=== PATIENT | male | born 1985 | race Caucasian/White ===

== ENCOUNTER 2016-11-29 16:13 | Inpatient (IN) | payer MEDICAID, MEDICARE ==
[~2016-11-29] VITALS: Ht 175.3 cm; Wt 81.5 kg
[~2016-11-29 16:13] MED LIST: BENZ2TAB10 PO; RISP3 PO
[2016-11-29] MEDS ORDERED: MAG HYDROX/AL HYDROX/SIMETH ES 30 ML SUSPENSION UDCUP PO PRN (17:30)
[2016-11-29] MEDS ORDERED: LOPERAMIDE HCL 2 MG CAPSULE PO PRN (17:30)
[2016-11-29] MEDS ORDERED: GuaiFENesin/D-METHORPHAN [SUGAR-FREE] 200-20MG/10 ML SYRUP UDCUP PO PRN (17:30)
[2016-11-29] MEDS ORDERED: TUBERCULIN, PURIFIED PROTEIN DERIVATIVE 5 TU/0.1 ML SYG ID ONE (17:30)
[2016-11-29] MEDS ORDERED: PROMETHAZINE HCL 25 MG TABLET PO PRN (17:30)
[2016-11-29] MEDS ORDERED: MAGNESIUM HYDROXIDE SUSPENSION 30 ML UDCUP PO PRN (17:30)
[2016-11-29] MEDS ORDERED: PNEUMOCOCCAL VACCINE POLYVALENT 0.5 ML VIAL [PPSV23] IM ONE (18:00)
[2016-11-29] MEDS ORDERED: INFLUENZA VIRUS VACCINE QVS 2016-17 (3YR+)/PF 60 MCG/0.5 ML SYRINGE IM ONE (18:00)
[2016-11-29 18:24] VITALS: BP 123/61
[2016-11-29] MEDS: GABAPENTIN 300 MG CAPSULE PO SCH (18:58)
[2016-11-29] MEDS: THIAMINE HCL 100 MG TABLET PO SCH (18:58)
[2016-11-29 19:31] LABS: GLUCOSE,POINT OF CARE 126 MG/DL (70-110)
[2016-11-29] MEDS: DIVALPROEX SODIUM 500 MG ER TABLET PO SCH (20:36)
[2016-11-29] MEDS: LORazepam 2 MG TABLET PO PRN (20:36)
[2016-11-29] MEDS: ZOLPIDEM TARTRATE 10 MG TABLET PO PRN (20:36)
[2016-11-29] MEDS ORDERED: OLANZapine 5 MG RAPDIS TABLET PO SCH (21:00)
[2016-11-30 02:49] VITALS: BP 128/66
[2016-11-30 08:12] VITALS: BP 114/64
[2016-11-30] MEDS ORDERED: NICOTINE 14 MG/24 HOUR PATCH TD SCH (09:00)
[2016-11-30] MEDS: THIAMINE HCL 100 MG TABLET PO SCH ×2 (09:23→16:52)
[2016-11-30] MEDS: NALTREXONE HCL 50 MG TABLET PO SCH (09:23)
[2016-11-30] MEDS: GABAPENTIN 300 MG CAPSULE PO SCH ×3 (09:23→16:52)
[2016-11-30] MEDS: NICOTINE 21 MG/24 HOUR PATCH TD SCH (09:23)
[2016-11-30] MEDS: MULTIVITAMINS WITH MINERALS, THERAPEUTIC TABLET PO SCH (09:24)
[2016-11-30] MEDS: LORazepam 2 MG TABLET PO PRN ×2 (09:24→16:52)
[2016-11-30] MEDS: FOLIC ACID 1 MG TABLET PO SCH (09:24)
[2016-11-30 09:33] LABS: APPEARANCE,URINE CLEAR (CLEAR); GLUCOSE, URINE (UA) NEGATIVE (NEGATIVE); KETONES,URINE NEGATIVE (NEGATIVE); LEUKOCYTE ESTERASE ,URINE NEGATIVE (NEGATIVE); OCCULT BLOOD,URINE TRACE (NEGATIVE); PROTEIN,URINE NEGATIVE (NEGATIVE)
[2016-11-30 10:11] LABS: ADD UA MICROSCOPIC YES
[2016-11-30 10:26] LABS: RBC,URINE 0-2 /HPF (0-2); WBC,URINE 0-2 /HPF (0-5)
[2016-11-30 10:27] LABS: SQUAMOUS EPITHELIAL CELL,UR Rare /LPF (None Seen)
[2016-11-30 16:15] VITALS: BP 119/73
[2016-11-30] MEDS: HydrOXYzine PAMOATE 50 MG CAPSULE PO PRN (16:52)
[2016-11-30] MEDS ORDERED: LORazepam 2 MG/ML VIAL IM ONE (18:15)
[2016-11-30] MEDS ORDERED: DiphenhydrAMINE HCL 50 MG/ML VIAL IM ONE (18:15)
[2016-11-30] MEDS ORDERED: HALOPERIDOL LACTATE 5 MG/ML VIAL IM ONE (18:15)
[2016-11-30] MEDS: DIVALPROEX SODIUM 500 MG ER TABLET PO SCH (21:00)
[2016-11-30] MEDS: OLANZapine 10 MG RAPDIS TABLET PO SCH (21:00)
[2016-12-01 07:04] VITALS: BP 111/68
[2016-12-01 08:12] VITALS: BP 135/75
[2016-12-01] MEDS: NICOTINE 21 MG/24 HOUR PATCH TD SCH (08:29)
[2016-12-01] MEDS: THIAMINE HCL 100 MG TABLET PO SCH ×2 (08:29→16:51)
[2016-12-01] MEDS: LORazepam 2 MG TABLET PO PRN ×2 (08:29→16:51)
[2016-12-01] MEDS: MULTIVITAMINS WITH MINERALS, THERAPEUTIC TABLET PO SCH (08:29)
[2016-12-01] MEDS: FOLIC ACID 1 MG TABLET PO SCH (08:29)
[2016-12-01] MEDS: NALTREXONE HCL 50 MG TABLET PO SCH (08:29)
[2016-12-01] MEDS: GABAPENTIN 300 MG CAPSULE PO SCH ×3 (08:29→16:52)
[2016-12-01] MEDS: OLANZapine 5 MG RAPDIS TABLET PO PRN (10:15)
[2016-12-01] MEDS ORDERED: DiphenhydrAMINE HCL 50 MG/ML VIAL ONE (10:55)
[2016-12-01] MEDS ORDERED: LORazepam 2 MG/ML VIAL ONE (10:55)
[2016-12-01] MEDS ORDERED: HALOPERIDOL LACTATE 5 MG/ML VIAL ONE (10:55)
[2016-12-01] MEDS ORDERED: DiphenhydrAMINE HCL 50 MG/ML VIAL IM ONE (11:00)
[2016-12-01] MEDS ORDERED: BENZTROPINE MESYLATE 2 MG TABLET PO ONE (11:00)
[2016-12-01] MEDS ORDERED: LORazepam 2 MG/ML VIAL IM ONE (11:00)
[2016-12-01] MEDS ORDERED: HALOPERIDOL LACTATE 5 MG/ML VIAL IM ONE (11:00)
[2016-12-01] MEDS: BENZTROPINE MESYLATE 2 MG TABLET PO SCH ×2 (13:00→16:52)
[2016-12-01 16:12] VITALS: BP 112/68
[2016-12-01] MEDS: HydrOXYzine PAMOATE 50 MG CAPSULE PO PRN (16:51)
[2016-12-01] MEDS: OLANZapine 10 MG RAPDIS TABLET PO SCH (20:56)
[2016-12-01] MEDS: DIVALPROEX SODIUM 500 MG ER TABLET PO SCH (20:56)
[2016-12-02 05:17] VITALS: BP 137/95
[2016-12-02] MEDS ORDERED: ALBUTEROL SULFATE HFA 90 MCG/PUFF 8 GM INHALER IH PRN (06:15)
[2016-12-02 08:06] LABS: BASOPHILS % (AUTO) 0.6 % (0.0-2.0); EOSINOPHILS % (AUTO) 5.3 % (1.0-6.0); HEMATOCRIT 44.8 % (41-53); HEMOGLOBIN 15.1 g/dL (13.5-17.5); LYMPHOCYTES % (AUTO) 35.5 % (22.0-44.0); MEAN CORPUSCULAR HEMOGLOBIN 30.6 pg (26.0-34.0); MEAN CORPUSCULAR HGB CONC 33.8 G/dL (31.0-37.0); MEAN CORPUSCULAR VOLUME 91 fL (80-100); MONOCYTES # (AUTO) 0.4 K/uL (0.1-1.0); MONOCYTES % (AUTO) 6.8 % (2.0-9.0); NEUTROPHILS % (AUTO) 51.8 % (40.0-70.0); PLATELET COUNT (AUTO) 363 K/uL (150-450); RED BLOOD CELL COUNT(AUTO) 4.94 MIL/uL (4.50-5.90); RED CELL DISTRIBUTION WIDTH 12.9 % (11.5-14.5); WHITE BLOOD COUNT (AUTO) 5.8 K/uL (4.5-11.0)
[2016-12-02] MEDS: THIAMINE HCL 100 MG TABLET PO SCH ×2 (08:19→17:41)
[2016-12-02] MEDS: OLANZapine 5 MG RAPDIS TABLET PO PRN ×2 (08:19→13:56)
[2016-12-02] MEDS: NALTREXONE HCL 50 MG TABLET PO SCH (08:19)
[2016-12-02] MEDS: BENZTROPINE MESYLATE 2 MG TABLET PO SCH ×3 (08:19→17:41)
[2016-12-02] MEDS: MULTIVITAMINS WITH MINERALS, THERAPEUTIC TABLET PO SCH (08:19)
[2016-12-02] MEDS: GABAPENTIN 300 MG CAPSULE PO SCH ×3 (08:19→17:41)
[2016-12-02] MEDS: FOLIC ACID 1 MG TABLET PO SCH (08:19)
[2016-12-02] MEDS: NICOTINE 21 MG/24 HOUR PATCH TD SCH (08:20)
[2016-12-02] MEDS: LORazepam 2 MG TABLET PO PRN ×3 (08:20→17:41)
[2016-12-02 08:22] VITALS: BP 136/69
[2016-12-02 08:30] LABS: HEMOGLOBIN A1C 5.3 % (4.5-6.2)
[2016-12-02 09:53] LABS: ALANINE AMINOTRANSFERASE 33 U/L (12-78); ALBUMIN 3.6 g/dL (3.4-5.0); ANION GAP 7 mmol/L (8-16); ASPARTATE AMINOTRANSFERASE 34 U/L (15-37); BILIRUBIN,TOTAL 0.2 mg/dL (0.1-1.0); CALCIUM, TOTAL 9.2 mg/dL (8.8-10.5); CARBON DIOXIDE 29 mmol/L (22-29); CHLORIDE 102 mmol/L (98-107); CHOL/HDL RATIO 3.3 (4.2-7.3); CREATINE KINASE MB 3.9 ng/mL (0-5); CREATINE KINASE, TOTAL 927 U/L (39-308); CREATININE 0.88 mg/dL (0.60-1.30); GLOMERULAR FILTR. RATE CALC > 60 mL/min (>60); SODIUM SERUM 138 mmol/L (136-145); THYROID STIMULATING HORMONE 0.56 uIU/mL (0.36-3.74); TOTAL PROTEIN, SERUM 7.4 g/dL (6.4-8.2); UREA NITROGEN, BLOOD 13 mg/dL (7-18); VALPROIC ACID 62 mcg/mL (50-100)
[2016-12-02] MEDS: ACETAMINOPHEN 325 MG TABLET PO PRN (14:40)
[2016-12-02 16:11] VITALS: BP 135/69
[2016-12-02] MEDS: HydrOXYzine PAMOATE 50 MG CAPSULE PO PRN (17:41)
[2016-12-02] MEDS: DIVALPROEX SODIUM 500 MG ER TABLET PO SCH (20:48)
[2016-12-02] MEDS: OLANZapine 10 MG RAPDIS TABLET PO SCH (20:48)
[2016-12-03 05:32] VITALS: BP 133/73
[2016-12-03 08:49] VITALS: BP 128/78
[2016-12-03] MEDS: LORazepam 2 MG TABLET PO PRN ×2 (09:57→16:21)
[2016-12-03] MEDS: FOLIC ACID 1 MG TABLET PO SCH (09:58)
[2016-12-03] MEDS: BENZTROPINE MESYLATE 2 MG TABLET PO SCH ×3 (09:58→16:21)
[2016-12-03] MEDS: NICOTINE 21 MG/24 HOUR PATCH TD SCH (09:58)
[2016-12-03] MEDS: THIAMINE HCL 100 MG TABLET PO SCH ×2 (09:58→16:21)
[2016-12-03] MEDS: GABAPENTIN 300 MG CAPSULE PO SCH ×3 (09:58→16:21)
[2016-12-03] MEDS: NALTREXONE HCL 50 MG TABLET PO SCH (09:58)
[2016-12-03] MEDS: MULTIVITAMINS WITH MINERALS, THERAPEUTIC TABLET PO SCH (09:58)
[2016-12-03 16:28] VITALS: BP 121/73
[2016-12-03] MEDS: OLANZapine 10 MG RAPDIS TABLET PO SCH (20:54)
[2016-12-03] MEDS: DIVALPROEX SODIUM 500 MG ER TABLET PO SCH (20:55)
[2016-12-04 06:04] VITALS: BP 125/72
[2016-12-04] MEDS: ACETAMINOPHEN 325 MG TABLET PO PRN ×2 (06:37→15:10)
[2016-12-04 08:24] LABS: CREATINE KINASE MB 1.8 ng/mL (0-5); CREATINE KINASE, TOTAL 243 U/L (39-308)
[2016-12-04 08:37] VITALS: BP 126/67
[2016-12-04] MEDS: FOLIC ACID 1 MG TABLET PO SCH (10:06)
[2016-12-04] MEDS: THIAMINE HCL 100 MG TABLET PO SCH ×2 (10:06→16:46)
[2016-12-04] MEDS: NALTREXONE HCL 50 MG TABLET PO SCH (10:06)
[2016-12-04] MEDS: GABAPENTIN 300 MG CAPSULE PO SCH ×3 (10:06→16:46)
[2016-12-04] MEDS: MULTIVITAMINS WITH MINERALS, THERAPEUTIC TABLET PO SCH (10:06)
[2016-12-04] MEDS: BENZTROPINE MESYLATE 2 MG TABLET PO SCH ×3 (10:07→16:46)
[2016-12-04] MEDS: LORazepam 2 MG TABLET PO PRN ×2 (10:07→16:46)
[2016-12-04] MEDS: NICOTINE 21 MG/24 HOUR PATCH TD SCH (10:07)
[2016-12-04 16:19] VITALS: BP 126/64
[2016-12-04] MEDS: HydrOXYzine PAMOATE 50 MG CAPSULE PO PRN (16:46)
[2016-12-04] MEDS: DIVALPROEX SODIUM 500 MG ER TABLET PO SCH (20:53)
[2016-12-04] MEDS: OLANZapine 10 MG RAPDIS TABLET PO SCH (20:53)
[2016-12-05 01:20] VITALS: BP 123/71
[2016-12-05 08:12] VITALS: BP 134/78
[2016-12-05] MEDS: LORazepam 2 MG TABLET PO PRN ×2 (09:52→16:29)
[2016-12-05] MEDS: GABAPENTIN 300 MG CAPSULE PO SCH ×3 (09:52→16:28)
[2016-12-05] MEDS: BENZTROPINE MESYLATE 2 MG TABLET PO SCH ×3 (09:52→16:29)
[2016-12-05] MEDS: THIAMINE HCL 100 MG TABLET PO SCH ×2 (09:52→16:28)
[2016-12-05] MEDS: MULTIVITAMINS WITH MINERALS, THERAPEUTIC TABLET PO SCH (09:52)
[2016-12-05] MEDS: FOLIC ACID 1 MG TABLET PO SCH (09:52)
[2016-12-05] MEDS: NALTREXONE HCL 50 MG TABLET PO SCH (09:52)
[2016-12-05] MEDS: NICOTINE 21 MG/24 HOUR PATCH TD SCH (09:52)
[2016-12-05 16:00] VITALS: BP 122/92
[2016-12-05] MEDS: OLANZapine 10 MG RAPDIS TABLET PO SCH (20:39)
[2016-12-05] MEDS: DIVALPROEX SODIUM 500 MG ER TABLET PO SCH (20:39)
[2016-12-06 02:26] VITALS: BP 122/72
[2016-12-06] MEDS: LORazepam 2 MG TABLET PO PRN ×3 (04:22→21:01)
[2016-12-06] MEDS: OLANZapine 5 MG RAPDIS TABLET PO PRN (04:22)
[2016-12-06] MEDS: THIAMINE HCL 100 MG TABLET PO SCH ×2 (08:07→16:52)
[2016-12-06] MEDS: MULTIVITAMINS WITH MINERALS, THERAPEUTIC TABLET PO SCH (08:07)
[2016-12-06] MEDS: NALTREXONE HCL 50 MG TABLET PO SCH (08:07)
[2016-12-06] MEDS: BENZTROPINE MESYLATE 2 MG TABLET PO SCH ×3 (08:07→16:52)
[2016-12-06] MEDS: NICOTINE 21 MG/24 HOUR PATCH TD SCH (08:08)
[2016-12-06] MEDS: GABAPENTIN 300 MG CAPSULE PO SCH ×3 (08:08→16:52)
[2016-12-06] MEDS: FOLIC ACID 1 MG TABLET PO SCH (08:08)
[2016-12-06 08:13] VITALS: BP 119/75
[2016-12-06 16:09] VITALS: BP 141/72
[2016-12-06] MEDS: DIVALPROEX SODIUM 500 MG ER TABLET PO SCH (20:27)
[2016-12-06] MEDS: OLANZapine 10 MG RAPDIS TABLET PO SCH (20:27)
[2016-12-06] MEDS: ZOLPIDEM TARTRATE 10 MG TABLET PO PRN (21:01)
[2016-12-07 05:46] VITALS: BP 125/87
[2016-12-07 08:44] VITALS: BP 139/68
[2016-12-07] MEDS: GABAPENTIN 300 MG CAPSULE PO SCH ×3 (10:04→16:40)
[2016-12-07] MEDS: THIAMINE HCL 100 MG TABLET PO SCH ×2 (10:04→16:40)
[2016-12-07] MEDS: NICOTINE 21 MG/24 HOUR PATCH TD SCH (10:04)
[2016-12-07] MEDS: CHOLECALCIFEROL (VIT D3) 2,000 UNITS TABLET PO SCH (10:04)
[2016-12-07] MEDS: FOLIC ACID 1 MG TABLET PO SCH (10:04)
[2016-12-07] MEDS: MULTIVITAMINS WITH MINERALS, THERAPEUTIC TABLET PO SCH (10:04)
[2016-12-07] MEDS: BENZTROPINE MESYLATE 2 MG TABLET PO SCH ×3 (10:04→17:00)
[2016-12-07] MEDS: NALTREXONE HCL 50 MG TABLET PO SCH (10:04)
[2016-12-07] MEDS: LORazepam 2 MG TABLET PO PRN ×2 (10:05→16:40)
[2016-12-07] MEDS: OLANZapine 5 MG RAPDIS TABLET PO PRN ×2 (10:05→16:40)
[2016-12-07 16:13] VITALS: BP 132/71
[2016-12-07] MEDS: ACETAMINOPHEN 325 MG TABLET PO PRN (16:40)
[2016-12-07] MEDS: OLANZapine 10 MG RAPDIS TABLET PO SCH (20:53)
[2016-12-07] MEDS: DIVALPROEX SODIUM 500 MG ER TABLET PO SCH (20:54)
[2016-12-08 05:43] VITALS: BP 135/84
[2016-12-08 08:12] VITALS: BP 135/80
[2016-12-08] MEDS: BENZTROPINE MESYLATE 2 MG TABLET PO SCH ×3 (09:34→16:44)
[2016-12-08] MEDS: FOLIC ACID 1 MG TABLET PO SCH (09:34)
[2016-12-08] MEDS: CHOLECALCIFEROL (VIT D3) 2,000 UNITS TABLET PO SCH (09:34)
[2016-12-08] MEDS: NICOTINE 21 MG/24 HOUR PATCH TD SCH (09:34)
[2016-12-08] MEDS: THIAMINE HCL 100 MG TABLET PO SCH ×2 (09:34→16:44)
[2016-12-08] MEDS: NALTREXONE HCL 50 MG TABLET PO SCH (09:34)
[2016-12-08] MEDS: GABAPENTIN 300 MG CAPSULE PO SCH ×3 (09:34→16:44)
[2016-12-08] MEDS: MULTIVITAMINS WITH MINERALS, THERAPEUTIC TABLET PO SCH (09:34)
[2016-12-08] MEDS: LORazepam 2 MG TABLET PO PRN ×3 (09:35→20:52)
[2016-12-08] MEDS: OLANZapine 5 MG RAPDIS TABLET PO PRN (09:35)
[2016-12-08] MEDS ORDERED: ACETAMINOPHEN 325 MG TABLET PO PRN (15:30)
[2016-12-08 16:13] VITALS: BP 137/76
[2016-12-08] MEDS: DIVALPROEX SODIUM 500 MG ER TABLET PO SCH (20:51)
[2016-12-08] MEDS: ZOLPIDEM TARTRATE 10 MG TABLET PO PRN (20:52)
[2016-12-08] MEDS ORDERED: OLANZapine 10 MG RAPDIS TABLET PO SCH (21:00)
[2016-12-09 05:28] VITALS: BP 125/73
[2016-12-09 08:12] VITALS: BP 140/74
[2016-12-09] MEDS: LORazepam 2 MG TABLET PO PRN ×2 (10:01→16:31)
[2016-12-09] MEDS: MULTIVITAMINS WITH MINERALS, THERAPEUTIC TABLET PO SCH (10:01)
[2016-12-09] MEDS: NALTREXONE HCL 50 MG TABLET PO SCH (10:01)
[2016-12-09] MEDS: THIAMINE HCL 100 MG TABLET PO SCH (10:01)
[2016-12-09] MEDS: CHOLECALCIFEROL (VIT D3) 2,000 UNITS TABLET PO SCH (10:01)
[2016-12-09] MEDS: FOLIC ACID 1 MG TABLET PO SCH (10:02)
[2016-12-09] MEDS: BENZTROPINE MESYLATE 2 MG TABLET PO SCH ×3 (10:02→16:31)
[2016-12-09] MEDS: NICOTINE 21 MG/24 HOUR PATCH TD SCH (10:02)
[2016-12-09] MEDS: GABAPENTIN 300 MG CAPSULE PO SCH ×2 (10:02→13:35)
[2016-12-09] MEDS: HALOPERIDOL 5 MG TABLET PO PRN (16:31)
[2016-12-09] MEDS: GABAPENTIN 100 MG CAPSULE PO SCH (16:31)
[2016-12-09 16:36] VITALS: BP 116/74
[2016-12-09] MEDS: DIVALPROEX SODIUM 500 MG ER TABLET PO SCH (20:42)
[2016-12-09] MEDS ORDERED: HALOPERIDOL 10 MG TABLET PO SCH (21:00)
[2016-12-10 04:11] VITALS: BP 124/75
[2016-12-10 07:53] LABS: BASOPHILS % (AUTO) 0.3 % (0.0-2.0); EOSINOPHILS % (AUTO) 4.4 % (1.0-6.0); HEMATOCRIT 41.3 % (41-53); HEMOGLOBIN 13.8 g/dL (13.5-17.5); LYMPHOCYTES # (AUTO) 1.9 K/uL (1.0-4.8); LYMPHOCYTES % (AUTO) 18.2 % (22.0-44.0); MEAN CORPUSCULAR HEMOGLOBIN 30.3 pg (26.0-34.0); MEAN CORPUSCULAR HGB CONC 33.4 G/dL (31.0-37.0); MEAN CORPUSCULAR VOLUME 91 fL (80-100); MONOCYTES # (AUTO) 0.7 K/uL (0.1-1.0); MONOCYTES % (AUTO) 6.4 % (2.0-9.0); NEUTROPHILS # (AUTO) 7.4 K/uL (1.8-7.7); NEUTROPHILS % (AUTO) 70.7 % (40.0-70.0); PLATELET COUNT (AUTO) 310 K/uL (150-450); RED BLOOD CELL COUNT(AUTO) 4.55 MIL/uL (4.50-5.90); RED CELL DISTRIBUTION WIDTH 13.4 % (11.5-14.5); WHITE BLOOD COUNT (AUTO) 10.5 K/uL (4.5-11.0)
[2016-12-10 08:12] VITALS: BP 128/67
[2016-12-10 08:42] LABS: ALANINE AMINOTRANSFERASE 29 U/L (12-78); ALBUMIN 3.5 g/dL (3.4-5.0); ANION GAP 9 mmol/L (8-16); ASPARTATE AMINOTRANSFERASE 15 U/L (15-37); BILIRUBIN,TOTAL 0.2 mg/dL (0.1-1.0); CALCIUM, TOTAL 8.5 mg/dL (8.8-10.5); CARBON DIOXIDE 29 mmol/L (22-29); CHLORIDE 101 mmol/L (98-107); CREATINE KINASE MB 1.5 ng/mL (0-5); CREATINE KINASE, TOTAL 85 U/L (39-308); CREATININE 0.89 mg/dL (0.60-1.30); GLOMERULAR FILTR. RATE CALC > 60 mL/min (>60); POTASSIUM 3.8 mmol/L (3.5-5.1); SODIUM SERUM 139 mmol/L (136-145); UREA NITROGEN, BLOOD 10 mg/dL (7-18)
[2016-12-10] MEDS: CHOLECALCIFEROL (VIT D3) 2,000 UNITS TABLET PO SCH (08:49)
[2016-12-10] MEDS: BENZTROPINE MESYLATE 2 MG TABLET PO SCH ×3 (08:49→16:37)
[2016-12-10] MEDS: MULTIVITAMINS WITH MINERALS, THERAPEUTIC TABLET PO SCH (08:49)
[2016-12-10] MEDS: LORazepam 2 MG TABLET PO PRN ×2 (08:49→16:37)
[2016-12-10] MEDS: GABAPENTIN 100 MG CAPSULE PO SCH ×3 (08:49→16:37)
[2016-12-10] MEDS: NALTREXONE HCL 50 MG TABLET PO SCH (08:49)
[2016-12-10] MEDS: NICOTINE 21 MG/24 HOUR PATCH TD SCH (08:50)
[2016-12-10] MEDS: HALOPERIDOL 5 MG TABLET PO PRN (08:50)
[2016-12-10 17:39] VITALS: BP 132/67
[2016-12-10] MEDS: HALOPERIDOL 10 MG TABLET PO SCH (20:13)
[2016-12-10] MEDS: DIVALPROEX SODIUM 500 MG ER TABLET PO SCH (20:13)
[2016-12-11 05:15] VITALS: BP 124/78
[2016-12-11 08:11] VITALS: BP 117/77
[2016-12-11] MEDS: CHOLECALCIFEROL (VIT D3) 2,000 UNITS TABLET PO SCH (09:36)
[2016-12-11] MEDS: NICOTINE 21 MG/24 HOUR PATCH TD SCH (09:36)
[2016-12-11] MEDS: GABAPENTIN 100 MG CAPSULE PO SCH ×3 (09:36→16:20)
[2016-12-11] MEDS: MULTIVITAMINS WITH MINERALS, THERAPEUTIC TABLET PO SCH (09:36)
[2016-12-11] MEDS: NALTREXONE HCL 50 MG TABLET PO SCH (09:36)
[2016-12-11] MEDS: LORazepam 2 MG TABLET PO PRN ×2 (09:37→14:03)
[2016-12-11] MEDS: HALOPERIDOL 5 MG TABLET PO PRN ×2 (09:37→14:03)
[2016-12-11] MEDS: BENZTROPINE MESYLATE 2 MG TABLET PO SCH ×3 (09:37→16:21)
[2016-12-11] MEDS: IBUPROFEN 600 MG TABLET PO PRN (16:21)
[2016-12-11 17:05] VITALS: BP 111/67
[2016-12-11] MEDS: DIVALPROEX SODIUM 500 MG ER TABLET PO SCH (20:45)
[2016-12-11] MEDS: HALOPERIDOL 10 MG TABLET PO SCH (20:45)
[2016-12-12 08:12] VITALS: BP 124/73
[2016-12-12] MEDS: GABAPENTIN 100 MG CAPSULE PO SCH ×3 (09:28→16:39)
[2016-12-12] MEDS: NALTREXONE HCL 50 MG TABLET PO SCH (09:28)
[2016-12-12] MEDS: NICOTINE 21 MG/24 HOUR PATCH TD SCH (09:28)
[2016-12-12] MEDS: CHOLECALCIFEROL (VIT D3) 2,000 UNITS TABLET PO SCH (09:28)
[2016-12-12] MEDS: HALOPERIDOL 5 MG TABLET PO PRN ×2 (09:29→13:34)
[2016-12-12] MEDS: BENZTROPINE MESYLATE 2 MG TABLET PO SCH ×3 (09:29→16:39)
[2016-12-12] MEDS: LORazepam 2 MG TABLET PO PRN ×2 (09:29→13:34)
[2016-12-12] MEDS: MULTIVITAMINS WITH MINERALS, THERAPEUTIC TABLET PO SCH (09:29)
[2016-12-12 16:12] VITALS: BP 139/69
[2016-12-12] MEDS: HALOPERIDOL 10 MG TABLET PO SCH (20:56)
[2016-12-12] MEDS: DIVALPROEX SODIUM 500 MG ER TABLET PO SCH (20:56)
[2016-12-13] MEDS: LORazepam 2 MG TABLET PO PRN ×3 (05:54→17:05)
[2016-12-13 05:55] VITALS: BP 128/77
[2016-12-13 08:12] VITALS: BP 133/89
[2016-12-13 09:35] VITALS: BP 125/82
[2016-12-13] MEDS: MULTIVITAMINS WITH MINERALS, THERAPEUTIC TABLET PO SCH (09:36)
[2016-12-13] MEDS: NICOTINE 21 MG/24 HOUR PATCH TD SCH (09:36)
[2016-12-13] MEDS: CHOLECALCIFEROL (VIT D3) 2,000 UNITS TABLET PO SCH (09:36)
[2016-12-13] MEDS: GABAPENTIN 100 MG CAPSULE PO SCH (09:36)
[2016-12-13] MEDS: HALOPERIDOL 5 MG TABLET PO PRN (09:37)
[2016-12-13] MEDS: BENZTROPINE MESYLATE 2 MG TABLET PO SCH ×3 (09:37→16:37)
[2016-12-13] MEDS: IBUPROFEN 600 MG TABLET PO PRN (09:37)
[2016-12-13] MEDS: NALTREXONE HCL 50 MG TABLET PO SCH (09:37)
[2016-12-13 10:37] VITALS: BP 121/86
[2016-12-13 16:00] VITALS: BP 123/69
[2016-12-13] MEDS ORDERED: HALOPERIDOL DECANOATE 50 MG/ML VIAL IM ONE (16:00)
[2016-12-13] MEDS ORDERED: HALO10 PO (16:00)
[2016-12-13] MEDS ORDERED: DIVA500T52 PO (16:00)
[2016-12-13] MEDS ORDERED: NALT50 PO (16:00)
[2016-12-13] MEDS ORDERED: BENZ2TAB10 PO (16:00)
[2016-12-13] MEDS ORDERED: HALOD50I IM (16:00)
[2016-12-13] MEDS: DIVALPROEX SODIUM 500 MG ER TABLET PO SCH (20:39)
[2016-12-13] MEDS: HALOPERIDOL 10 MG TABLET PO SCH (20:39)
[2016-12-13] MEDS: ZOLPIDEM TARTRATE 10 MG TABLET PO PRN (20:40)
[2016-12-14 04:30] VITALS: BP 118/65
[2016-12-14 08:26] VITALS: BP 131/66
[2016-12-14] MEDS: NALTREXONE HCL 50 MG TABLET PO SCH (08:32)
[2016-12-14] MEDS: NICOTINE 21 MG/24 HOUR PATCH TD SCH (08:32)
[2016-12-14] MEDS: CHOLECALCIFEROL (VIT D3) 2,000 UNITS TABLET PO SCH (08:33)
[2016-12-14] MEDS: BENZTROPINE MESYLATE 2 MG TABLET PO SCH ×2 (08:33→13:00)
[2016-12-14] MEDS: MULTIVITAMINS WITH MINERALS, THERAPEUTIC TABLET PO SCH (08:33)
[2016-12-14] MEDS: IBUPROFEN 600 MG TABLET PO PRN (10:43)
[2016-12-14 10:45] VITALS: BP 128/73
[2016-12-14] MEDS ORDERED: DIVA500T52 PO (13:55)
[2016-12-14] MEDS ORDERED: HALOD50I IM (13:55)
[2016-12-14] MEDS ORDERED: HALO10 PO (13:55)
[2016-12-14] MEDS ORDERED: NALT50TA10 PO (13:55)
[2016-12-14] MEDS ORDERED: BENZ2TAB10 PO (13:55)
[2017-01-12] MEDS ORDERED: HALOPERIDOL DECANOATE 50 MG/ML VIAL IM SCH (09:00)
== END 2016-12-14 14:15 | disposition home or self-care (01) | DRG 885 ==
LOC: B3A 17:43 → EDSTATUS 17:56 → B3A 21:01
PROVIDERS: ADMIT Psychiatry & Neurology Psychiatry; ATTEND Psychiatry & Neurology Psychiatry
PROC: 3E0234Z Introduction of Serum, Toxoid and Vaccine into Muscle, Percutaneous Approach (ICD-10-PCS; principal; 2016-11-30)
PROC: 3E0234Z Introduction of Serum, Toxoid and Vaccine into Muscle, Percutaneous Approach (ICD-10-PCS; 2016-11-30)
DX: F20.0 Paranoid schizophrenia (principal); E87.1 Hypo-osmolality and hyponatremia; F14.20 Cocaine dependence, uncomplicated; F15.20 Other stimulant dependence, uncomplicated; R45.851 Suicidal ideations; M62.82 Rhabdomyolysis; D64.9 Anemia, unspecified; D72.829 Elevated white blood cell count, unspecified; E11.9 Type 2 diabetes mellitus without complications; E55.9 Vitamin D deficiency, unspecified; E87.6 Hypokalemia; F17.210 Nicotine dependence, cigarettes, uncomplicated; I10 Essential (primary) hypertension; J45.909 Unspecified asthma, uncomplicated; K02.9 Dental caries, unspecified; K59.00 Constipation, unspecified; E66.9 Obesity, unspecified; Z68.26 Body mass index [BMI] 26.0-26.9, adult; Z79.899 Other long term (current) drug therapy; Z59.0 Homelessness; Z65.3 Problems related to other legal circumstances; Z81.8 Family history of other mental and behavioral disorders; Z91.14 Patient's other noncompliance with medication regimen; Z72.89 Other problems related to lifestyle; Z23 Encounter for immunization
CPT/HCPCS: 80307; 82306; 82607; 82746; 82962; 83036; 83735; 84439; 84443; 86592; 87081; 90471; J1200; J1630; J1631; J2060

== ENCOUNTER 2018-02-14 16:06 | Inpatient (IN) | payer MEDICARE, MEDICAID ==
[~2018-02-14] VITALS: Ht 170.2 cm; Wt 88.7 kg
[~2018-02-14 16:06] MED LIST changes: +DIVA500T52 PO; +HALO10 PO; +HALOD50I IM; +NALT50TA10 PO; +NALT50TA6 PO; -RISP3 PO
[2018-02-14] MEDS ORDERED: HALOPERIDOL 5 MG TABLET PO PRN (20:00)
[2018-02-14] MEDS ORDERED: ZOLPIDEM TARTRATE 10 MG TABLET PO PRN (20:00)
[2018-02-14] MEDS ORDERED: LORazepam 2 MG TABLET PO PRN (20:00)
[2018-02-14] MEDS ORDERED: INFLUENZA VIRUS VACCINE QVS 2017-18 (3YR+)/PF 60 MCG/0.5 ML SYRINGE IM ONE (20:30)
[2018-02-14] MEDS ORDERED: -PHARMACY VACCINE NOTE- MISC ONE (20:30)
[2018-02-14 20:49] VITALS: BP 126/64
[2018-02-15 00:32] VITALS: BP 109/65
[2018-02-15 08:30] VITALS: BP 116/53
[2018-02-15 09:46] LABS: BASOPHILS % (AUTO) 0.7 % (0.0-2.0); EOSINOPHILS % (AUTO) 7.4 % (1.0-6.0); HEMATOCRIT 42.8 % (41-53); HEMOGLOBIN 14.8 g/dL (13.5-17.5); LYMPHOCYTES # (AUTO) 1.9 K/uL (1.0-4.8); LYMPHOCYTES % (AUTO) 32.6 % (22.0-44.0); MEAN CORPUSCULAR HGB CONC 34.5 G/dL (31.0-37.0); MEAN CORPUSCULAR VOLUME 90 fL (80-100); MONOCYTES # (AUTO) 0.4 K/uL (0.1-1.0); MONOCYTES % (AUTO) 7.4 % (2.0-9.0); NEUTROPHILS % (AUTO) 51.9 % (40.0-70.0); PLATELET COUNT (AUTO) 386 K/uL (150-450); RED BLOOD CELL COUNT(AUTO) 4.76 MIL/uL (4.50-5.90); RED CELL DISTRIBUTION WIDTH 14.1 % (11.5-14.5)
[2018-02-15 10:10] LABS: HEMOGLOBIN A1C 5.4 % (4.5-6.2)
[2018-02-15 10:15] LABS: ALANINE AMINOTRANSFERASE 66 U/L (12-78); ALBUMIN 3.6 g/dL (3.4-5.0); ALKALINE PHOSPHATASE 71 U/L (46-116); ANION GAP 7 mmol/L (8-16); ASPARTATE AMINOTRANSFERASE 24 U/L (15-37); BILIRUBIN,TOTAL 0.3 mg/dL (0.1-1.0); CALCIUM, TOTAL 9.4 mg/dL (8.8-10.5); CARBON DIOXIDE 30 mmol/L (22-29); CHLORIDE 102 mmol/L (98-107); CHOL/HDL RATIO 5.1 (4.2-7.3); CHOLESTEROL 225 mg/dL (131-200); CREATININE 0.76 mg/dL (0.60-1.30); GLOMERULAR FILTR. RATE CALC > 60 mL/min (>60); GLUCOSE,RANDOM 83 mg/dL (70-110); HDL CHOLESTEROL 44 mg/dL (40-60); LDL CHOL (CALC.) 143 mg/dL (0-130); POTASSIUM 4.2 mmol/L (3.5-5.1); SODIUM SERUM 139 mmol/L (136-145); THYROID STIMULATING HORMONE 0.56 uIU/mL (0.36-3.74); TOTAL PROTEIN, SERUM 7.3 g/dL (6.4-8.2); TRIGLYCERIDES 189 mg/dL (15-150); UREA NITROGEN, BLOOD 16 mg/dL (7-18)
[2018-02-15] MEDS ORDERED: ALBUTEROL SULFATE HFA 90 MCG/PUFF 8 GM INHALER IH PRN (11:15)
[2018-02-15 16:12] VITALS: BP 110/65
[2018-02-15] MEDS: BENZTROPINE MESYLATE 2 MG TABLET PO SCH (20:40)
[2018-02-15] MEDS: DIVALPROEX SODIUM 500 MG ER TABLET PO SCH (20:40)
[2018-02-15] MEDS: OLANZapine 5 MG TABLET PO SCH (20:41)
[2018-02-16 00:59] VITALS: BP 108/64
[2018-02-16 08:37] VITALS: BP 116/77
[2018-02-16 09:04] LABS: AMPHET/METH SCREEN,URINE NEGATIVE (NEGATIVE); BARBITURATE SCREEN, URINE NEGATIVE (NEGATIVE); BENZODIAZEPINES SCREEN,URINE NEGATIVE (NEGATIVE); CANNABINOID SCREEN,URINE NEGATIVE (NEGATIVE); COCAINE SCREEN,URINE NEGATIVE (NEGATIVE); METHADONE SCREEN, URINE NEGATIVE (NEGATIVE); OPIATE SCREEN,URINE NEGATIVE (NEGATIVE)
[2018-02-16 09:05] LABS: PHENCYCLIDINE SCREEN,URINE NEGATIVE (NEGATIVE)
[2018-02-16 09:33] LABS: APPEARANCE,URINE CLEAR (CLEAR); BILIRUBIN,URINE NEGATIVE (NEGATIVE); GLUCOSE, URINE (UA) NEGATIVE (NEGATIVE); KETONES,URINE NEGATIVE (NEGATIVE); LEUKOCYTE ESTERASE ,URINE NEGATIVE (NEGATIVE); NITRATE,URINE NEGATIVE (NEGATIVE); OCCULT BLOOD,URINE NEGATIVE (NEGATIVE); PROTEIN,URINE NEGATIVE (NEGATIVE); UROBILINOGEN,URINE 0.2 mg/dL (<=1.0)
[2018-02-16 16:06] VITALS: BP 136/80
[2018-02-16] MEDS: DIVALPROEX SODIUM 500 MG ER TABLET PO SCH (20:34)
[2018-02-16] MEDS: OLANZapine 5 MG TABLET PO SCH (20:34)
[2018-02-16] MEDS: BENZTROPINE MESYLATE 2 MG TABLET PO SCH (20:34)
[2018-02-17 03:15] VITALS: BP 115/75
[2018-02-17 08:50] VITALS: BP 102/60
[2018-02-17 16:10] VITALS: BP 117/66
[2018-02-17] MEDS: DIVALPROEX SODIUM 500 MG ER TABLET PO SCH (20:26)
[2018-02-17] MEDS: BENZTROPINE MESYLATE 2 MG TABLET PO SCH (20:28)
[2018-02-17] MEDS: OLANZapine 5 MG TABLET PO SCH (20:31)
[2018-02-18 01:45] VITALS: BP 127/81
[2018-02-18 08:43] VITALS: BP 118/60
[2018-02-18 17:26] VITALS: BP 109/60
[2018-02-18] MEDS: OLANZapine 5 MG TABLET PO SCH (20:22)
[2018-02-18] MEDS: BENZTROPINE MESYLATE 2 MG TABLET PO SCH (20:22)
[2018-02-18] MEDS: DIVALPROEX SODIUM 500 MG ER TABLET PO SCH (20:22)
[2018-02-19 03:11] VITALS: BP 127/80
[2018-02-19 08:30] VITALS: BP 129/78
[2018-02-19 16:16] VITALS: BP 113/64
[2018-02-19] MEDS ORDERED: OLAN5TAB27 PO (19:30)
[2018-02-19] MEDS ORDERED: BENZ2TAB10 PO (19:30)
[2018-02-19] MEDS ORDERED: DIVA500T52 PO (19:30)
[2018-02-19] MEDS: BENZTROPINE MESYLATE 2 MG TABLET PO SCH (20:14)
[2018-02-19] MEDS: OLANZapine 5 MG TABLET PO SCH (20:14)
[2018-02-19] MEDS: DIVALPROEX SODIUM 500 MG ER TABLET PO SCH (20:14)
[2018-02-20] VITALS: BP 107/62
[2018-02-20 08:47] VITALS: BP 125/74
== END 2018-02-20 09:35 | disposition home or self-care (01) | DRG 885 ==
LOC: B2X 19:56
DX: F25.1 Schizoaffective disorder, depressive type (principal); R45.851 Suicidal ideations; Z59.0 Homelessness; F19.20 Other psychoactive substance dependence, uncomplicated; D64.9 Anemia, unspecified; F17.200 Nicotine dependence, unspecified, uncomplicated; I10 Essential (primary) hypertension; F12.10 Cannabis abuse, uncomplicated; F10.10 Alcohol abuse, uncomplicated; J45.909 Unspecified asthma, uncomplicated; F14.90 Cocaine use, unspecified, uncomplicated; E78.5 Hyperlipidemia, unspecified; E78.1 Pure hyperglyceridemia; Z91.5 Personal history of self-harm; R73.03 Prediabetes; Z88.8 Allergy status to other drugs, medicaments and biological substances; Z79.899 Other long term (current) drug therapy
CPT/HCPCS: 80307; 83036; 84439; 84443